=== PATIENT | female | born 1965 | race Two or more races ===

== ENCOUNTER 2017-12-08 07:39 | Day surgery (SDC) | payer OTHER ==
[2017-12-08] VITALS (13 sets, daily range): BP systolic 97–128; BP diastolic 61–79
[~2017-12-08] VITALS: Ht 154.9 cm; Wt 59.9 kg
[~2017-12-08 07:39] MED LIST: LR 1000ml 1,000 ML IVLG SCH
--- NOTE | 2017-12-08 07:53 | Short Stay Surgery H&P ---
History of Present Illness History of Present Illness Chief Complaint Abdominal pains and dysphagia. HPI Rosa Desouza is a 51 year old female who was admitted on for GERD/ abdominal pains and dysphagia, Patient History Allergies: Coded Allergies: No Known Allergies (Unverified , 12/07/17) PAST MEDICAL HISTORY: (1) Asthma (2) History of cholecystectomy Review of Systems Cardiovascular: Reports: no symptoms Respiratory: Reports: asthma Skeletal: Reports: trauma Gastrointestinal: Reports: gastro esophageal reflux disease Genitourinary: Reports: no symptoms Neurologic: Reports: no symptoms Endocrine: Reports: no symptoms Hematologic: Reports: no symptoms Physical Exam Skin: normal HENT: normal Heart: normal Lungs: normal Abdomen: abnormal Extremities: normal Genitourinary: normal Plan Plan of Care Upper GI. endoscopy and biopsy Preop Interventions None. Summary of Findings See the reports Attestation Are the patient's medical conditions optimized for surgery? Attestation Response: yes Autumn Ritchie MD Dec 08, 2017 07:53
--- NOTE | 2017-12-08 07:54 | Pre-Procedure Note/Attestation ---
Pre-Procedure Note/Attestation Complete Prior to Procedure Planned Procedure: left Procedure Narrative: Examination of the upper GI tract via endoscopy Indications for Procedure Pre-Operative Diagnosis: R/O Esophagitis/Peptic ulcer/gastritis Attestation I attest that I discussed the nature of the procedure; its benefits; risks and complications; and alternatives (and the risks and benefits of such alternatives ), prior to the procedure, with the patient (or the patient's legal billing representative). I attest that, if there was a reasonable possibility of needing a blood transfusion, the patient (or the patient's legal billing representative) was given the [facility] standardized written summary, pursuant to the [place] Blood Safety Act ([place] Health and Safety Code # 1645, as amended). I attest that I re-evaluated the patient just prior to the surgery and that there has been no change in the patient's H&P, except as documented below: Autumn Ritchie MD Dec 08, 2017 07:54
[2017-12-08] MEDS ORDERED: LR 1000ml ONE (08:00)
[2017-12-08] MEDS ORDERED: Midazolam 2mg/2ml Inj ONE (08:00)
[2017-12-08] MEDS ORDERED: Propofol 200mg/20ml IV ONE (08:00)
[2017-12-08] MEDS ORDERED: Lidocaine 1% MPF 10mg/ml 5ml ONE (08:00)
--- NOTE | 2017-12-08 08:00 | Anethesia Preoperative Eval ---
Anesthesia Pre-op PMH/ROS General Date of Evaluation: Dec 08, 2017 Time of Evaluation: 07:50 Anesthesiologist: Feliz ASA Score: ASA 1 Mallampati Score Class I : Soft palate, uvula, fauces, pillars visible Class II: Soft palate, uvula, fauces visible Class III: Soft palate, base of uvula visible Class IV: Only hard plate visible Mallampati Classification: Class I Surgeon: Erma Diagnosis: GERD/dysphagia Surgical Procedure: Upper endoscopy with possible biopsy Anesthesia History: none Family History: no anesthesia problems Allergies: Coded Allergies: No Known Allergies (Unverified , 12/08/17) Medications: see eMAR Patient NPO?: Yes NPO Date: Dec 07, 2017 NPO Time: 19:00 Past Medical History Cardiovascular: Denies: HTN, CAD, OR, valve dz, arrhythmia, other Pulmonary: Reports: asthma Gastrointestinal/Genitourinary: Reports: GERD, other - hx of cholecystectomy and current abdominal pain Endocrine: Denies: DM, hypothyroidism, steroids, other HEENT: Denies: cataract (L), cataract (R), glaucoma, [place] (L), [place] (R), other Hematology/Immune: Denies: anemia, DVT, bleeding disorder, other Musculoskeletal/Integumentary: Denies: OA, RA, DJD, DDD, edema, other Anesthesia Pre-op Phys. Exam Physician Exam Constitutional: NAD Neurologic: CN 2-12 intact Cardiovascular: RRR Respiratory: CTA Gastrointestinal: S/NT/ND Airway Exam Mallampati Score: Class I MO: full ROM: full Teeth: intact Dentures: no upper, no lower Anesthesia Pre-op A/P Labs chart reviewed Risk Assessment & Plan Assessment: A&Ox4, Plan: MAC Status Change Before Surgery: No Pre-Antibiotics Given Within 1 Hr of Incision: No Lori Piper CRNA Dec 08, 2017 08:00
--- NOTE | 2017-12-08 08:03 | Immediate Post-Op Evaluation ---
Immediate Post-Op Evalulation Immediate Post-Op Evalulation Procedure: upper endoscopy Date of Evaluation: Dec 08, 2017 Time of Evaluation: 08:40 IV Fluids: LR 300 ml Blood Products: 0 Estimated Blood Loss: 0 Urinary Output: no alaniz Blood Pressure Systolic: 102 Blood Pressure Diastolic: 71 Pulse Rate: 72 Respiratory Rate: 20 O2 Sat by Pulse Oximetry: 97 Temperature (Fahrenheit): 97.8 Pain Score (1-10): 0 Nausea: No Vomiting: No Complications none noted, pt slightly coughing as woke up Patient Status: awake, reacts, patent Hydration Status: adequate Given Within 1 Hr of Incision: No - none per surgeon Lori Piper CRNA Dec 08, 2017 08:03
[2017-12-08] MEDS ORDERED: DULERA 200 MCG/13 GM IH (08:17)
[2017-12-08] MEDS ORDERED: LORATADINE10 M2 PO (08:17)
--- NOTE | 2017-12-08 08:35 | Endoscopy Procedure Note ---
Endoscopy Procedure Note General Indication for Procedure: GERDs/abdominal pains and dysphagia Procedures Performed: EGD - Mild gastritis and bile in stomach, random biopsy obtained from gastric body. Specimen: yes Pt Tolerated Procedure Well: Yes Estimated Blood Loss: none Anesthesia Anesthesiologist: Ms. Feliz CRNA Anesthesia: moderate sedation Inserted Devices Implant(s) used?: No Quality Quality of Bowel Preparation: Excellent GI Core Measures 50 yrs or older w/o bx or poly: Not Applicable 10yrs. F/U not recommended: Not Applicable If not recommended, why?: Med reason:<3 yrs.: System Reason:<3 yrs.: Autumn Ritchie MD Dec 08, 2017 08:35
--- NOTE | 2017-12-08 08:39 | Discharge Instructions ---
Discharge Instructions Discharge Instructions Follow up with: See the doctor after 2 weeks in office For Congestive Heart Failure Reminder Report to your physician any weight gain of 5 pounds or more in one week. Autumn Ritchie MD Dec 08, 2017 08:39
[2017-12-08] MEDS ORDERED: Albuterol 90mcg Inhaler 8gm INH PRN (09:00)
[2017-12-08] MEDS ORDERED: fentaNYL 100 mcg/2 mL IV PRN (09:45)
--- NOTE | 2017-12-08 10:42 | 48 Hour Post Anesthesia Eval ---
Post Anesthesia Evaluation Procedure: upper endoscopy Date of Evaluation: Dec 08, 2017 Time of Evaluation: 10:41 Blood Pressure Systolic: 128 0: 79 Pulse Rate: 66 Respiratory Rate: 18 Temperature (Fahrenheit): 97.9 O2 Sat by Pulse Oximetry: 97 Airway: patent Nausea: No Vomiting: No Pain Intensity: 0 Hydration Status: adequate Cardiopulmonary Status: WNL Mental Status/LOC: patient returned to baseline Follow-up care needed: patient intructions given Lori Piper CRNA Dec 08, 2017 10:42
--- NOTE | 2017-12-08 11:45 | Pre-op HX & Phy Repo 2 SIG ---
DATE OF ADMISSION: 12/08/2017 HISTORY OF PRESENT ILLNESS: The patient is a 51-year-old non-Somali speaking female, who is being seen at this time prior to undergoing the procedure for upper GI endoscopy today. The patient is being seen for medical examination as she is going to receive anesthesia for an endoscopy. The patient was seen earlier in my office sometime ago with a complaint of having abdominal pain and heartburn and difficulty swallowing. The abdominal pain was rather moderate and she reported that subsequent to her injury as she was started on multiple medications including nonsteroidal anti-inflammatory agents such as ibuprofen that she is still taking, she started to experience this pain along with having difficulty swallowing, which happens intermittently. The heartburn is almost daily and she has been treated in the past with a medication of omeprazole, which was somewhat helpful, but currently she is not taking this medication. The applicant, however, denied having any GI bleeding symptoms such as hematemesis, melena, hematochezia. 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 PAST MEDICAL HISTORY: The patient reports that she has had asthma in the past for which she is taking some sprays, otherwise unremarkable. She denies hypertension or any hyperlipidemia, arthritis, etc. PAST SURGICAL HISTORY: She has had cholecystectomy in 2012. ALLERGIES: None significant. FAMILY HISTORY: Mother has had high cholesterol, otherwise it is none significant. HABITS: The applicant denies drinking alcohol or smoking cigarettes. MEDICATIONS: She takes ibuprofen on a daily basis or p.r.n. sometimes. She has been taking asthma medications and inhaler. REVIEW OF SYSTEMS: Basically history of present illness, however, the patient complains of abdominal pains along with having anxiety and depression, which seems to be severe. PHYSICAL EXAMINATION: GENERAL: Reveals alert, oriented, very pleasant female, does not seem to be in any acute distress. She looks well developed and nourished. VITAL SIGNS: Stable. HEENT: Normocephalic. Pupils equal in size and reactive to light and accommodation. No jaundice. NECK: Supple. No JVD, thyromegaly, adenopathy. CHEST: Clear to auscultation and percussion. No rales or rhonchi. HEART: S1, S2 normal. Regular rhythm. No gallops or murmur. ABDOMEN: Soft, but there is rather tender over the upper part of the abdomen, but there is no organomegaly. EXTREMITIES: Unremarkable. CENTRAL NERVOUS SYSTEM: Unremarkable. PRELIMINARY IMPRESSION: 1. Epigastric pain with history of gastroesophageal reflux, rule out NSAID-induced gastropathy, rule out duodenal ulcer, gastric ulcer. 2. Dysphagia, rule out esophagitis secondary to nonsteroidal anti-inflammatory agents. 3. History of bodily injury, work-related. RECOMMENDATIONS: The applicant at this time seems to be quite stable to undergo the procedure of upper GI endoscopy for which she has been scheduled. She understands the risks and benefits and will sign the consent form. Said Sparkle Ritchie DR: JERZY JOB#: [id number] CC:
--- NOTE | 2017-12-08 12:00 | Operative Note - Dictated ---
DATE OF OPERATION: 12/08/2017 SURGEON: Autumn Ritchie M.D. PROCEDURE: Esophagogastroduodenoscopy with biopsy. PREOPERATIVE DIAGNOSES: Abdominal pain, heartburn, dysphagia. POSTOPERATIVE DIAGNOSIS: Mild generalized gastritis with evidence of bile in the stomach, otherwise normal upper GI endoscopy. Biopsy was taken per random from gastric body. MEDICATIONS USED: Per Ms. Lori Piper CRNA. INSTRUMENT: GIF Olympus upper GI video endoscope. DESCRIPTION OF PROCEDURE: The patient after arriving an endoscopy unit, was told about risks and benefits of the procedure, which she accepted and signed the informed consent. She was then put on the left lateral decubitus position. After adequate IV sedation, the scope was gently passed through the cricopharyngeal area, was lodged into the upper esophagus and advanced gradually towards the gastroesophageal junction. The entire length of the esophagus looked normal and there was no any inflammatory process, ulceration, stricture, etc. GE junction also looked normal without any evidence of hiatal hernia or Alvarez's. At this time, the scope was advanced into the gastric cavity and insufflation of air produced adequate distention of the stomach and gradually areas of the fundus and the body and the antrum were examined. There was minimal amount of bile in the stomach consistent with duodenal gastric bile reflux and there was however evidence of mild gastritis presenting with erythema of the gastric mucosa, but there was no ulcers, tumors, bleeding sites, etc. At this point, one random biopsy from gastric body obtained and a retroflexion maneuver was applied. The area of the gastroesophageal junction was examined, which revealed no abnormality except what is stated earlier. Finally, the scope was passed through the widely open pylorus, first and second portion of duodenum were found, also to be completely normal. At this point, the scope was pulled out and procedure was terminated. The patient tolerated the procedure well and left the endoscopy room in a good condition. Autumn Ritchie M.D. DR: JERZY JOB#: [id number] CC:
== END 2017-12-08 10:10 | disposition home or self-care (01) ==
LOC: SUR 07:39
DX: K29.50 Unspecified chronic gastritis without bleeding (principal); K21.9 Gastro-esophageal reflux disease without esophagitis; J45.909 Unspecified asthma, uncomplicated; Z90.49 Acquired absence of other specified parts of digestive tract
CPT/HCPCS: 43239; 81025; J2250; J2704; 94003; 94150